=== PATIENT | male | born 1960 | race Caucasian/White ===

== ENCOUNTER → 2017-12-04 07:43 | Outpatient (CLI) | payer BC, SELFPAY ==
[2017-12-04 10:45] LABS: Alanine Aminotransferase 23 U/L (12-78); Albumin Level 3.8 gm/dL (3.4-5.0); Albumin/Globulin Ratio 1.1 (1.1-1.8); Alkaline Phosphatase 126 U/L (46-116); Anion Gap 8.7 mEq/L (5-15); Aspartate Amino Transferase 18 U/L (15-37); Bilirubin,Total 0.5 mg/dL (0.2-1.0); Blood Urea Nitrogen 18 mg/dL (7-18); Calcium 8.9 mg/dL (8.5-10.1); Carbon Dioxide 32 mmol/L (21.0-32.0); Chloride 104 mmol/L (98-107); Chol/HDL Ratio 3.3 (1-3.5); Cholesterol 164 mg/dL (140-200); Estimated Glomerular Filt Rate 100 ml/min (>60); GFR (African American) 121 ML/MIN (>60); Globulin 3.4 gm/dl (1.3-3.2); Glucose 85 mg/dL (74-106); HDL Cholesterol 49 mg/dL (27-67); LDL Cholesterol 99 mg/dL (0-130); Potassium 4.7 mmoL/L (3.5-5.1); Sodium 140 mmol/L (136-145); Total Protein,Serum 7.2 gm/dL (6.4-8.2); Triglycerides 81 mg/dL (30-200); VLDL Cholesterol 16 mg/dL (0-40)
== END ==
PROVIDERS: PCP Family Medicine; Visit Provider Family Medicine
DX: E78.5 Hyperlipidemia, unspecified (principal); I10 Essential (primary) hypertension
CPT/HCPCS: 36415; 80053; 80061

== ENCOUNTER 2018-02-03 09:00 | Outpatient (RCR) | payer BC, SELFPAY | END 2018-02-03 09:05 | disposition home or self-care (01) | LOC: PT 09:00 | PROVIDERS: Visit Provider Orthopaedic Surgery | DX: Z96.641 Presence of right artificial hip joint (principal) | CPT/HCPCS: 97110; 97163 ==

== ENCOUNTER → 2020-06-20 15:37 | Outpatient (CLI) | payer OTHER, SELFPAY ==
--- NOTE | 2020-06-20 15:46 | XR_ITS ---
PROCEDURE: XR SHOULDER LT MIN 2V CLINICAL INDICATION: ACUTE PAIN OF LT SHOULDER COMPARISON: No exams were available for comparison FINDINGS: No fracture or dislocation. No lytic or blastic change. There is normal mineralization. Minimal spurring at the AC joint. No significant subacromial stenosis. Unremarkable glenohumeral joint. IMPRESSION: Minimal degenerative change AC joint Dictated by: Abdon Nieves MD 06/20/2020 17:43 Abdon Nieves MD in [place] 06/20/2020 17:43
== END ==
PROVIDERS: PCP Family Medicine; Visit Provider Family Medicine
DX: M25.512 Pain in left shoulder (principal)
CPT/HCPCS: 73030

== ENCOUNTER 2020-09-29 03:24 | Emergency (ER) | payer BC, SELFPAY ==
[2020-09-29 03:40] VITALS: BP 142/90; PULSE 79; RESP 16; TEMP 36.6; O2SAT 98; BMI 28.1
[2020-09-29 04:39] VITALS: BP 141/73; PULSE 78; RESP 16; O2SAT 98
--- NOTE | 2020-09-29 04:56 | ECG_ITS ---
APPROVED REPORT Exam: Resting ECG HR:58 bpm ECG Measurements Heart Rate 58 AXES CA 176 P 46 QRSd 98 QRS 62 QT 392 T 23 QTc 384 Conclusion Sinus bradycardia Otherwise normal ECG Electronically signed by : Maik Mcknight MD 09/29/2020 22:27:35
[2020-09-29 05:08] LABS: Basophils # 0.1 K/mm3 (0-0.2); Basophils % 0.5 % (0.1-2.0); Eosinophils # 0.3 K/mm3 (0.0-0.4); Eosinophils % 2.5 % (0.1-12.0); Hematocrit 43.8 % (42.0-52.0); Hemoglobin 14.3 g/dL (14.1-18.0); Lymphocytes # 1.6 K/mm3 (0.7-4.5); Lymphocytes % 15.3 % (10-50); Mean Corpuscular HGB Conc 32.6 g/dL (31.8-35.4); Mean Corpuscular Hemoglobin 28.4 pg (27.0-31.2); Mean Corpuscular Volume 87.2 fl (80-94); Mean Platelet Volume 7.2 fl (7.4-10.4); Monocytes # 0.5 K/mm3 (0.1-1.0); Monocytes % 4.8 % (1.7-9.3); Neutrophils # 8.2 K/mm3 (1.8-7.8); Neutrophils % 76.9 % (37.0-80.0); Platelet Count 308 K/mm3 (142-424); Red Blood Count 5.02 M/mm3 (4.60-6.20); Red Cell Distribution Width 14.1 % (11.5-17.5); White Blood Count 10.7 K/mm3 (4.8-10.8)
[2020-09-29 05:14] LABS: Alanine Aminotransferase 23 U/L (12-78); Albumin Level 4.4 g/dl (3.5-5.0); Albumin/Globulin Ratio 1.3 (1.1-1.8); Alkaline Phosphatase 122 U/L (38-126); Anion Gap 11.5 mEq/L (5-15); Aspartate Amino Transferase 29 U/L (17-59); Bilirubin,Total 0.5 mg/dl (0.2-1.3); Blood Urea Nitrogen 17 mg/dl (9-20); Calcium 9.1 mg/dl (8.4-10.2); Carbon Dioxide 29 mmol/L (22.0-30.0); Chloride 103 mmol/L (98-107); Creatinine Clearance Estimated 115 mL/min (50-200); Estimated Glomerular Filt Rate 99 ml/min (>60); GFR (African American) 120 ML/MIN (>60); Globulin 3.5 g/dL (1.3-3.2); Glucose 106 mg/dl (74-100); Potassium 4.5 mmoL/L (3.5-5.1); Sodium 139 mmol/L (136-145); Total Protein,Serum 7.9 g/dl (6.3-8.2); Uric Acid 3.9 mg/dl (3.5-8.5)
[2020-09-29 05:19] LABS: C-Reactive Protein 175.8 mg/L (0-4)
[2020-09-29 05:30] LABS: Troponin I < 0.01 ng/ml (0.00-0.034)
--- NOTE | 2020-09-29 05:51 | HMH.EDGENADL ---
ED Disposition Clinical Impression: Arthralgia Qualifiers: Joint pain location: hand Laterality: bilateral Qualified Code(s): M25.541 - Pain in joints of right hand; M25.542 - Pain in joints of left hand Disposition: Home, Self-Care Condition on Discharge: Good Instructions: DI for Arthralgia Additional Instructions: call pcp this am Referrals: Valdez Fox MD [Primary Care Provider] - - Critical Care Critical Care Time: No Attestation: On 09/29/20, the high probability of a clinically significant, sudden or life threatening deterioration of the following system(s) required my full and direct attention, intervention and personal management. The time I documented below is in addition to time spent performing reported procedures but includes the following listed in this critical care notation. Medical Decision Making - Medical Records Medical records reviewed: Yes: I reviewed the patient's medical records. - Ceferino Inquiry Pt receiving controlled substance: No Vital Signs: 09/29/20 03:40 09/29/20 04:39 Temperature 97.8 F Temperature Source Oral Pulse Rate 78 Pulse Rate [Right Brachial] 79 Respiratory Rate 16 16 Blood Pressure 141/73 H Blood Pressure [Right Arm] 142/90 H Blood Pressure Mean [Right Arm] 107 Blood Pressure Source Automatic Cuff Blood Pressure Source [Right Arm] Automatic Cuff Blood Pressure Position Sitting Blood Pressure Position [Right Arm] Sitting 02 Sat by Pulse Oximetry 98 98 Oxygen Delivery Method Room Air Room Air - Lab Data Lab results reviewed: Yes: I reviewed the patient's lab results. Lab Results 09/29/20 04:50: WBC 10.7, RBC 5.02, Hgb 14.3, Hct 43.8, MCV 87.2, MCH 28.4, MCHC 32.6, RDW 14.1, Plt Count 308, MPV 7.2 L, Neut % (Auto) 76.9, Lymph % (Auto) 15.3, Meigs % (Auto) 4.8, Eos % (Auto) 2.5, Baso % (Auto) 0.5, Neut # (Auto) 8.2 H, Lymph # (Auto) 1.6, Meigs # (Auto) 0.5, Eos # (Auto) 0.3, Baso # (Auto) 0.1 09/29/20 04:50: Sodium 139, Potassium 4.5, Chloride 103, Carbon Dioxide 29, Anion Gap 11.5, BUN 17, Creatinine 0.80, Estimated Creat Clear 115, Estimated GFR 99, Est GFR ( Amer) 120, Glucose 106 H, Calcium 9.1, Total Bilirubin 0.5, AST 29, ALT 23, Alkaline Phosphatase 122, Troponin I < 0.01, C-Reactive Protein 175.8 H, Total Protein 7.9, Albumin 4.4, Globulin 3.5 H, Albumin/Globulin Ratio 1.3 09/29/20 04:50: Uric Acid 3.9 Result diagrams: 09/29/20 04:50 09/29/20 04:50 Orders (Tests/Meds): ED MEDICATIONS Discontinued Medications Generic Name Dose Route Start Last Admin Trade Name Freq PRN Reason Stop Dose Admin Ketorolac Tromethamine 30 mg 09/29/20 04:42 09/29/20 04:46 Ketorolac 30mg/Ml Vial IV 09/29/20 04:43 30 mg ONCE ONE Administration Methylprednisolone Sodium Succinate 125 mg 09/29/20 04:42 09/29/20 04:46 Methylprednisolone Sod Succ 125mg Vial IV 09/29/20 04:43 125 mg ONCE ONE Administration ORDERS Category Date Time Status Complete Blood Count Auto Diff Stat Lab 09/29/20 04:50 Results Erythrocyte Sedimentation Rate Stat Lab 09/29/20 04:50 Results Troponin I Q3H Lab 09/29/20 07:45 Ordered Troponin I Q3H Lab 09/29/20 10:45 Ordered Medical Decision Narrative: has elevated infl markers and bilat symmetrical jt pain - will ask pt to call pcp this am General Adult HPI - General Chief complaint: PAIN Stated complaint: pain in arms and legs Time Seen by Provider: 09/29/20 04:15 Mode of Arrival: Family Vehicle Source of Information: Patient, Medical Record Limitations: No Limitations Description of Symptoms (Recalled from ER Triage Doc. by RN): bilateral shoulders and bilat hand pain for approx 2 weeks. has been seeing dr fox for the pain, and had blood work drawn earlier this date. denies nausea/vomiting. denies dyspnea. no signs/symptoms of erythema, edema - History of Present Illness HPI narrative: has ongoing bilat shoulder and hand arthritis /joint pain - pt has seen pcp an
[2020-09-29 05:59] LABS: Erythrocyte Sedimentation Rate 25 mm/hr (0-20)
[2020-09-29 06:09] VITALS: BP 142/81; PULSE 73; RESP 16; TEMP 36.6; O2SAT 99
== END 2020-09-29 06:11 | disposition home or self-care (01) ==
PROVIDERS: Emergency Provider Emergency Medicine; PCP Family Medicine
DX: M25.541 Pain in joints of right hand (principal); M25.542 Pain in joints of left hand
CPT/HCPCS: 80053; 84484; 84550; 85025; 85651; 86140; 93005; 96375; 99282

== ENCOUNTER 2020-10-12 17:17 | Observation (INO) | payer BC, SELFPAY ==
[2020-10-12 17:18] VITALS: BP 134/82; PULSE 76; RESP 22; TEMP 37.6; O2SAT 93; BMI 28.1
--- NOTE | 2020-10-12 18:26 | ECG_ITS ---
APPROVED REPORT Exam: Resting ECG HR:76 bpm ECG Measurements Heart Rate 76 AXES VA 170 P 19 QRSd 104 QRS 21 QT 356 T 18 QTc 400 Conclusion Normal sinus rhythm Left atrial abnormality Borderline ECG Electronically signed by : Maik Mcknight MD 10/13/2020 17:34:36
--- NOTE | 2020-10-12 18:38 | XR_ITS ---
PROCEDURE INFORMATION: Exam: XR Chest Exam date and time: 10/12/20 06:38 PM Age: 59 years old Clinical indication: Shortness of breath; Patient HX: SOB TECHNIQUE: Imaging protocol: XR of the chest. Views: 1 view. COMPARISON: CR XR SHOULDER LT MIN 2V 06/20/20 03:49 PM FINDINGS: Lungs: Patchy bilateral ground-glass infiltrates, peripheral predominance. Consider COVID-19. Pleural spaces: Unremarkable. No pleural effusion. No pneumothorax. Heart/Mediastinum: Unremarkable. No cardiomegaly. Bones/joints: Unremarkable. IMPRESSION: Patchy bilateral ground-glass infiltrates, peripheral predominance. Consider COVID-19.
[2020-10-12 18:50] LABS: Alanine Aminotransferase 33 U/L (12-78); Alkaline Phosphatase 101 U/L (38-126); Anion Gap 12.9 mEq/L (5-15); Aspartate Amino Transferase 34 U/L (17-59); Bilirubin,Total 0.7 mg/dl (0.2-1.3); Blood Urea Nitrogen 14 mg/dl (9-20); Calcium 8.4 mg/dl (8.4-10.2); Carbon Dioxide 30 mmol/L (22.0-30.0); Chloride 97 mmol/L (98-107); Creatinine Clearance Estimated 131 mL/min (50-200); Estimated Glomerular Filt Rate 115 ml/min (>60); GFR (African American) 140 ML/MIN (>60); Glucose 106 mg/dl (74-100); Potassium 3.9 mmoL/L (3.5-5.1); Sodium 136 mmol/L (136-145)
[2020-10-12 18:51] LABS: Basophils % 0.3 % (0.1-2.0); Eosinophils # 0.2 K/mm3 (0.0-0.4); Eosinophils % 1.9 % (0.1-12.0); Hematocrit 41.9 % (42.0-52.0); Hemoglobin 13.7 g/dL (14.1-18.0); Lymphocytes # 0.9 K/mm3 (0.7-4.5); Lymphocytes % 9.9 % (10-50); Mean Corpuscular HGB Conc 32.7 g/dL (31.8-35.4); Mean Corpuscular Hemoglobin 28.7 pg (27.0-31.2); Mean Corpuscular Volume 87.7 fl (80-94); Mean Platelet Volume 8.2 fl (7.4-10.4); Monocytes # 0.7 K/mm3 (0.1-1.0); Monocytes % 6.8 % (1.7-9.3); Neutrophils # 7.8 K/mm3 (1.8-7.8); Neutrophils % 81.2 % (37.0-80.0); Platelet Count 445 K/mm3 (142-424); Red Blood Count 4.78 M/mm3 (4.60-6.20); Red Cell Distribution Width 13.7 % (11.5-17.5); White Blood Count 9.6 K/mm3 (4.8-10.8)
[2020-10-12 18:56] LABS: D-Dimer 0.26 ug/mL (0.0-0.5)
--- NOTE | 2020-10-12 19:44 | HMH.EDGENADL ---
ED Disposition Clinical Impression: Pneumonia due to COVID-19 virus Disposition: Admitted as Observation Condition on Discharge: Fair Referrals: Valdez Patel MD [Primary Care Provider] - - Critical Care Critical Care Time: No Attestation: On 10/12/20, the high probability of a clinically significant, sudden or life threatening deterioration of the following system(s) required my full and direct attention, intervention and personal management. The time I documented below is in addition to time spent performing reported procedures but includes the following listed in this critical care notation. Medical Decision Making - Ceferino Inquiry Pt receiving controlled substance: No Vital Signs: 10/12/20 17:18 Temperature 99.6 F Temperature Source Oral Pulse Rate [Right] 76 Respiratory Rate 22 Blood Pressure [Right Arm] 134/82 Blood Pressure Mean [Right Arm] 99 02 Sat by Pulse Oximetry 93 L Oxygen Delivery Method Room Air - Lab Data Lab Results 10/12/20 18:30: WBC 9.6, RBC 4.78, Hgb 13.7 L, Hct 41.9 L, MCV 87.7, MCH 28.7, MCHC 32.7, RDW 13.7, Plt Count 445 H, MPV 8.2, Neut % (Auto) 81.2 H, Lymph % (Auto) 9.9 L, Knott % (Auto) 6.8, Eos % (Auto) 1.9, Baso % (Auto) 0.3, Neut # (Auto) 7.8, Lymph # (Auto) 0.9, Knott # (Auto) 0.7, Eos # (Auto) 0.2, Baso # (Auto) 0.0 10/12/20 18:30: D-Dimer 0.26 10/12/20 18:30: Sodium 136, Potassium 3.9, Chloride 97 L, Carbon Dioxide 30, Anion Gap 12.9, BUN 14, Creatinine 0.70, Estimated Creat Clear 131, Estimated GFR 115, Est GFR ( Amer) 140, Glucose 106 H, Calcium 8.4, Total Bilirubin 0.7, AST 34, ALT 33, Alkaline Phosphatase 101, Total Protein 8.0, Albumin 4.0, Globulin 4.0 H, Albumin/Globulin Ratio 1.0 L Result diagrams: 10/12/20 18:30 10/12/20 18:30 - Physician Consults Physician Consulted: Maurice Time: 19:53 Reason -: Admission Comment/Response: Agrees to admit the patient to the hospital. We discussed the patient's clinical information, including history, exam, laboratory and radiology results and ED course. Per hospital procedure, I will write temporary bridge inpatient orders on the patient. Specific orders requested by the admitting physician: COVID-19 protocol Medical Decision Narrative: Day 10 of Covid infection and has now developed bilateral infiltrates, shortness of breath. Pulse ox has been 91 to 95% in the emergency department. I recommended admission for steroids and remdesivir and the patient is agreeable. General Adult HPI - General Chief complaint: Shortness of Breath/Dyspnea Stated complaint: covid positive symptoms worsening Time Seen by Provider: 10/12/20 19:45 Mode of Arrival: Ambulatory Limitations: No Limitations Description of Symptoms (Recalled from ER Triage Doc. by RN): COVID + on 10/02, today at noon woke up from a nap & was short of breath. c/o body aches & nausea. denies fevers. - History of Present Illness HPI narrative: Patient complains of shortness of breath. States that he tested positive for Covid 10 days ago. He took a nap today and woke up and says he could not breathe. Continues to have a cough. No recent fevers. He has body aches and nausea but no vomiting. He has had some diarrhea. No previous treatment for Covid except for zinc. He has not had monoclonal antibodies. He was not vaccinated against COVID-19. - Related Data Home Medications Medication Instructions Recorded Confirmed Celecoxib 200 mg PO DAILY 09/29/20 09/29/20 Pravastatin Sodium [Pravachol 40mg 40 mg PO HS 09/29/20 09/29/20 Tablet] Ramipril 10 mg PO DAILY 09/29/20 09/29/20 Allergies Allergy/AdvReac Type Severity Reaction Status Date / Time No Known Allergies Allergy Verified 12/23/17 17:58 [facility] History - Hepatitis A Screen Drug use history?: No High risk sexual behaviors?: No History of sexually transmitted infection?: No Currently employed?: No Childcare worker?: No Do you have indoor plumbing?: Yes Do you have elect
--- NOTE | 2020-10-12 21:48 | PC.NURSE ---
spoke with and updated re: situation. she was simultaneously upset that the dr hadn't spoken with her but understanding of pt needs being priority. pt gave password [email or web address] and was passed on to registration. report called to MIGUEL Palomares. Pt remains alert, oriented, no complaints other than this jung bed .
[2020-10-12 21:52] VITALS: BP 137/81; PULSE 95; RESP 24; TEMP 37.2; O2SAT 96
[2020-10-12 22:30] VITALS: BP 131/75; PULSE 78; RESP 17; TEMP 37.7; O2SAT 95; BMI 28.1
[2020-10-12 22:51] VITALS: O2SAT 94
--- NOTE | 2020-10-12 22:57 | PC.NURSE ---
pt. arrived via at 2220 to unit
[2020-10-13] VITALS: BP 137/84; PULSE 73; RESP 20; TEMP 37.3
--- NOTE | 2020-10-13 02:57 | PC.NURSE ---
Pt. has c/o soa, increasing with activity. Pt. also c/o intermittent nausea, usually post medication. No vomiting, diarrhea or c/o pain, dizziness. Pt. on RA with o2 sat 93-95%. Intermittent nonproductive cough noted.
[2020-10-13 04:00] VITALS: BP 130/89; PULSE 72; RESP 16; TEMP 36.9; O2SAT 96
[2020-10-13 05:33] VITALS: BMI 28.0
[2020-10-13 07:51] VITALS: BP 136/89; PULSE 68; RESP 19; TEMP 36.6; O2SAT 98
--- NOTE | 2020-10-13 08:07 | HMH.PHAINT ---
HOME MEDICATION LIST VERIFIED USING LIST FROM [facility]
--- NOTE | 2020-10-13 08:43 | HMH.HP ---
*Admission Date: 10/13/20 <Carla Leon 10/13/20 08:45> *Chief complaint: nausea, shortness of breath <Carla Leon 10/13/20 11:31> *History of present illness: Mr. Ospina is a 59yo male who tested positive for Covid 10 days ago. He states he did not have a vaccine as he is on the road a lot and did not have time to get one. His whole family did have the vaccine and none of them are sick. He states he thought he was feeling better until he took a nap today and woke up and could not breathe. He has had a cough along with body aches and nausea but no vomiting. He has also had some diarrhea. He states he has had no previous treatment for Covid except for zinc. His oxygen was in the low 90s on room air but his chest x-ray showed developing bilateral infiltrates. He was therefore admitted and started on steroids and remdesivir. <Carla Leon 10/13/20 11:31> [facility] History I have reviewed the patient's past medical history: Yes <Carla Leon 10/13/20 11:31> Medical History: Reports:: Gastroesophageal Reflux Disease(GERD), Hyperlipidemia, Hypertension Denies:: Diabetes Mellitus Type 1, Diabetes Mellitus Type 2 <Carla Leon 10/13/20 11:31> *Have you ever received a pneumonia vaccine?: No <Carla Leon 10/13/20 08:45> *Have you received a flu vaccine this season?: No <Carla Leon 10/13/20 08:45> Other Medical History: Reports: Arthritis, Cataracts (r eye) <Carla Leon 10/13/20 11:31> Laterality Cases: Bilateral: Total Hip Replacement <Carla Leon 10/13/20 08:45> - *Social History Smoking Status: Former smoker <Carla Leon 10/13/20 08:45> Alcohol Intake: current <Carla Leon 10/13/20 08:45> Alcohol Intake Frequency:: a few times a week <Carla Leon 10/13/20 08:45> *Occupational Status:: employed <Carla Leon 10/13/20 08:45> *Travel in the last 8 weeks: None <Carla Leon 10/13/20 08:45> Family Hx:: Coronary Artery Disease, Heart Attack, Hypertension <[facility] 10/13/20 11:31> Review of Systems - Constitutional Reports chills, Reports fever(s), Reports malaise, Reports weakness <[facility] 10/13/20 11:31> - Eyes Denies blurry vision, Denies double vision <JoselojagrutiCarla - 10/13/20 11:31> - ENT Reports nasal congestion, Reports sore throat <[facility] 10/13/20 11:31> - *Cardiovascular Reports shortness of breath, Denies chest pain <[facility] 10/13/20 11:31> - *Respiratory Reports cough, Reports shortness of breath <[facility] 10/13/20 11:31> - *Gastrointestinal Reports abdominal pain, Reports loose stools, Reports nausea, Denies vomiting <[facility] 10/13/20 11:31> - *Genitourinary Denies difficulty urinating, Denies painful urination <[facility] 10/13/20 11:31> - *Musculoskeletal Reports body aches, Denies joint pain <[facility] 10/13/20 11:31> - *Neurologic Reports headache(s), Reports weakness, Denies dizziness <[facility] 10/13/20 11:31> Meds Home Medications Medication Instructions Recorded Confirmed Type Pravastatin Sodium [Pravachol 40mg 40 mg PO HS 09/29/20 10/12/20 History Tablet] Multivit-Minerals/Folic Acid 200 mcg PO DAILY 10/12/20 10/12/20 History [Multivitamin Gummies] Omeprazole [Omeprazole 20mg Tab] 20 mg PO DAILY 10/12/20 10/12/20 History ramipriL [Ramipril] 2.5 mg PO DAILY 10/13/20 10/13/20 History <Valdez Patel - 10/13/20 13:30> Allergies Allergy/AdvReac Type Severity Reaction Status Date / Time No Known Allergies Allergy Verified 12/23/17 17:58 <Valdez Patel - 10/13/20 13:30> Exam Vital signs and Labs for Last 24 Hours: Temp Pulse Resp BP Pulse Ox 98.4 F 70 18 125/78 95 10/13/20 11:54 10/13/20 11:54 10/13/20 11:54 10/13/20 11:54 10/13/20 11:54 Laboratory Results - last 24 hr 10/12/20 18:30: WBC 9.6, RBC 4.78, Hgb 13.7 L, Hct 41.9 L, MCV 87.7, MCH 28.7, MCHC 32.7, RDW 13.7, Plt Count 445 H, MPV 8.2, Neut % (
[2020-10-13 11:54] VITALS: BP 125/78; PULSE 70; RESP 18; TEMP 36.9; O2SAT 95
--- NOTE | 2020-10-13 13:41 | PC.NURSE ---
This RN has taken over care of this pt at this time
[2020-10-13 16:00] VITALS: BP 119/80; PULSE 58; RESP 18; TEMP 36.7; O2SAT 96
[2020-10-13 20:00] VITALS: BP 119/76; PULSE 64; RESP 18; TEMP 37.2; O2SAT 93
[2020-10-14] VITALS: BP 116/76; PULSE 64; RESP 20; TEMP 36.6; O2SAT 96
--- NOTE | 2020-10-14 03:40 | PC.NURSE ---
Pt has not c/o any discomfort this shift. Has given himself a bath and tolerated well. Pt has remained on RA this shift with O2 sats mid to upper 90s.. Lungs are diminished. Pt has been bradycardic during sleep with HR as low as upper 40s. Pt has remained asymptomatic. No other concerns. Will continue to monitor.
[2020-10-14 04:00] VITALS: BP 130/80; PULSE 55; RESP 20; TEMP 36.6; O2SAT 97
[2020-10-14 05:00] VITALS: BMI 28.8
[2020-10-14 06:53] LABS: Alanine Aminotransferase 37 U/L (12-78); Alanine Aminotransferase 38 U/L (12-78); Albumin Level 3.1 g/dl (3.5-5.0); Albumin/Globulin Ratio 0.9 (1.1-1.8); Alkaline Phosphatase 74 U/L (38-126); Alkaline Phosphatase 75 U/L (38-126); Anion Gap 9.9 mEq/L (5-15); Aspartate Amino Transferase 36 U/L (17-59); Aspartate Amino Transferase 37 U/L (17-59); Bilirubin,Direct 0.2 mg/dl (0.0-0.4); Bilirubin,Total 0.2 mg/dl (0.2-1.3); Bilirubin,Total 0.3 mg/dl (0.2-1.3); Blood Urea Nitrogen 16 mg/dl (9-20); Carbon Dioxide 25 mmol/L (22.0-30.0); Chloride 107 mmol/L (98-107); Creatinine Clearance Estimated 156 mL/min (50-200); Estimated Glomerular Filt Rate 138 ml/min (>60); GFR (African American) 167 ML/MIN (>60); Globulin 3.2 g/dL (1.3-3.2); Glucose 126 mg/dl (74-100); Potassium 3.9 mmoL/L (3.5-5.1); Sodium 138 mmol/L (136-145); Total Protein,Serum 6.2 g/dl (6.3-8.2)
[2020-10-14 08:00] VITALS: BP 119/68; PULSE 56; RESP 14; TEMP 36.8; O2SAT 96
--- NOTE | 2020-10-14 08:45 | HMH.ACPN2 ---
Internal Medicine - PN: Subj *Date: 10/14/20 *Time: 08:45 Interval history: Patient did well overnight, did not need supplemental oxygen, anxious to go home. Exam Vital signs and Labs for Last 24 Hours: Temp Pulse Resp BP Pulse Ox 97.9 F 55 L 20 130/80 97 10/14/20 04:00 10/14/20 04:00 10/14/20 04:00 10/14/20 04:00 10/14/20 04:00 Laboratory Results - last 24 hr 10/14/20 05:19: Sodium 138, Potassium 3.9, Chloride 107, Carbon Dioxide 25, Anion Gap 9.9, BUN 16, Creatinine 0.60 L, Estimated Creat Clear 156, Estimated GFR 138, Est GFR ( Amer) 167, Glucose 126 H, Calcium 8.0 L, Total Bilirubin 0.3, AST 36, ALT 37, Alkaline Phosphatase 75, Total Protein 6.2 L, Albumin 3.0 L D, Globulin 3.2, Albumin/Globulin Ratio 0.9 L 10/14/20 05:19: Total Bilirubin 0.2, Direct Bilirubin 0.2, Conjugated Bilirubin 0.0, Indirect Bilirubin 0.0, Unconjugated Bilirubin 0.0, AST 37, ALT 38, Alkaline Phosphatase 74, Total Protein 6.2 L, Albumin 3.1 L Vital Signs - 24 hr 10/13/20 11:54 10/13/20 16:00 10/13/20 20:00 Temperature 98.4 F 98.1 F 99.0 F Pulse Rate [Right Radial] 58 L 64 Pulse Rate [Right] 70 Respiratory Rate 18 18 18 Blood Pressure [Right Arm] 125/78 119/80 119/76 02 Sat by Pulse Oximetry 95 96 93 L 10/14/20 00:00 10/14/20 04:00 Temperature 97.8 F 97.9 F Pulse Rate [Right Radial] 64 55 L Pulse Rate [Right] Respiratory Rate 20 20 Blood Pressure [Right Arm] 116/76 130/80 02 Sat by Pulse Oximetry 96 97 I & O for Last 24 hours: Intake & Output 10/11/20 10/12/20 10/13/20 10/14/20 23:59 23:59 23:59 23:59 Intake Total 880 / 880 Output Total 1450 / 1850 400 / 400 Balance -570 / -970 -400 / -400 Weight 179 lb 3 oz 179 lb 1 oz 183 lb 6 oz Microbiology Reports for the Last 24 Hours: Microbiology 10/13/20 11:26 Sputum - Expectorated Sputum Gram Stain - Final - Constitutional no acute distress - *Routine HEENT Exam Head: Present: normocephalic Eye: Present: EOMI, PERRL ENT: Present: mucous membranes moist - *Routine Neck Exam Present: supple. Absent: lymphadenopathy - *Routine Respiratory Exam Present: CTA bilaterally - *Routine Cardiovascular Exam Present: RRR - *Routine Abdominal Exam Present: soft, normoactive bowel sounds. Absent: tenderness - *Routine Extremities Exam Absent: cyanosis, clubbing, edema - *Routine Skin Exam Present: warm. Absent: rash - *Routine Neurological Exam Present: alert, oriented X3 Assessment and Plan (1) Pneumonia due to COVID-19 virus Status: Acute Category: Medical Code(s): U07.1 - COVID-19; J12.82 - Pneumonia due to coronavirus disease 2019 (2) Hypertension Status: Chronic Category: Medical Code(s): I10 - Essential (primary) hypertension (3) Hyperlipidemia Status: Chronic Category: Medical Code(s): E78.5 - Hyperlipidemia, unspecified - Assessment and plan all Dx Assessment and Plan for all problems:: OK for discharge home today. Patient does not want to continue Remdesivir as an outpatient. He will stay off work, f/u by telehealth visit in 6 days.
--- NOTE | 2020-10-14 21:30 | HMH.DCSUM ---
General - General Admission date:: 10/12/20 Discharge date: 10/14/20 HPI HPI: Mr. Ospina is a 59yo male who tested positive for Covid 10 days ago. He stated he did not have a vaccine as he is on the road a lot and did not have time to get one. He noted that his whole family did have the vaccine and none of them had been sick. He stated he thought he was feeling better until he took a nap and awakened and could not breathe. He had a cough along with body aches and nausea but no vomiting. He also had some diarrhea. He stated he had no previous treatment for Covid except for zinc. His oxygen was in the low 90s on room air but his chest x-ray showed developing bilateral infiltrates. He was therefore admitted and started on steroids and remdesivir. Hospital Course Hospital Course: Patient was started on Covid protocol. Sats remained above 90% on room air. The following day he remained comfortable. He was doing well with no need for supplemental oxygen. He was anxious to go home. Vital signs were stable. Patient was able to eat well. On 10/14/2020 patient was stable for discharge. He was to return home with limited activity and follow-up with Dr. Patel on 10/19/2020. Meds to include dexamethasone, vitamin C, vitamin D, zinc, and cough medicine. Objective Vital signs: Temp Pulse Resp BP Pulse Ox 98.3 F 56 L 14 119/68 96 10/14/20 08:00 10/14/20 08:00 10/14/20 08:00 10/14/20 08:00 10/14/20 08:00 Narrative: Exam Vital signs and Labs for Last 24 Hours: Temp Pulse Resp BP Pulse Ox 97.9 F 55 L 20 130/80 97 10/14/20 04:00 10/14/20 04:00 10/14/20 04:00 10/14/20 04:00 10/14/20 04:00 Laboratory Results - last 24 hr 10/14/20 05:19: Sodium 138, Potassium 3.9, Chloride 107, Carbon Dioxide 25, Anion Gap 9.9, BUN 16, Creatinine 0.60 L, Estimated Creat Clear 156, Estimated GFR 138, Est GFR ( Amer) 167, Glucose 126 H, Calcium 8.0 L, Total Bilirubin 0.3, AST 36, ALT 37, Alkaline Phosphatase 75, Total Protein 6.2 L, Albumin 3.0 L D, Globulin 3.2, Albumin/Globulin Ratio 0.9 L 10/14/20 05:19: Total Bilirubin 0.2, Direct Bilirubin 0.2, Conjugated Bilirubin 0.0, Indirect Bilirubin 0.0, Unconjugated Bilirubin 0.0, AST 37, ALT 38, Alkaline Phosphatase 74, Total Protein 6.2 L, Albumin 3.1 L Vital Signs - 24 hr 10/13/20 11:54 10/13/20 16:00 10/13/20 20:00 Temperature 98.4 F 98.1 F 99.0 F Pulse Rate [Right Radial] 58 L 64 Pulse Rate [Right] 70 Respiratory Rate 18 18 18 Blood Pressure [Right Arm] 125/78 119/80 119/76 02 Sat by Pulse Oximetry 95 96 93 L 10/14/20 00:00 10/14/20 04:00 Temperature 97.8 F 97.9 F Pulse Rate [Right Radial] 64 55 L Pulse Rate [Right] Respiratory Rate 20 20 Blood Pressure [Right Arm] 116/76 130/80 02 Sat by Pulse Oximetry 96 97 I & O for Last 24 hours: Intake & Output 10/11/20 10/12/20 10/13/20 10/14/20 23:59 23:59 23:59 23:59 Intake Total 880 / 880 Output Total 1450 / 1850 400 / 400 Balance -570 / -970 -400 / -400 Weight 179 lb 3 oz 179 lb 1 oz 183 lb 6 oz Microbiology Reports for the Last 24 Hours: Microbiology 10/13/20 11:26 Sputum - Expectorated Sputum Gram Stain - Final - Constitutional no acute distress - *Routine HEENT Exam Head: Present: normocephalic Eye: Present: EOMI, PERRL ENT: Present: mucous membranes moist - *Routine Neck Exam Present: supple. Absent: lymphadenopathy - *Routine Respiratory Exam Present: CTA bilaterally - *Routine Cardiovascular Exam Present: RRR - *Routine Abdominal Exam Present: soft, normoactive bowel sounds. Absent: tenderness - *Routine Extremities Exam Absent: cyanosis, clubbing, edema - *Routine Skin Exam Present: warm. Absent: rash - *Routine Neurological Exam Present: alert, oriented X3 Results Completed studies during hospitalization [Text1]: 10/12/2020 CXR IMPRESSION: Patchy bilateral ground-glass infiltrates, periphe
== END 2020-10-14 11:45 | disposition home or self-care (01) ==
LOC: ER 19:54 → ICU 21:52
PROVIDERS: Admitting Provider Family Medicine; Emergency Provider Emergency Medicine; PCP Family Medicine; Visit Provider Family Medicine
DX: U07.1 COVID-19 (principal); J12.82 Pneumonia due to coronavirus disease 2019; I10 Essential (primary) hypertension; K21.9 Gastro-esophageal reflux disease without esophagitis
CPT/HCPCS: 71045; 80053; 80076; 85025; 85378; 87070; 87205; 93005; 94760; 94761; 99284; G0378; J2405

== ENCOUNTER 2020-12-04 14:51 | Emergency (ER) | payer BC, SELFPAY ==
[2020-12-04 15:00] VITALS: BP 138/89; PULSE 81; RESP 19; TEMP 37.2; O2SAT 98; BMI 28.1
--- NOTE | 2020-12-04 16:18 | HMH.EDUTC ---
[facility] [place] Clinical Impression: Arthralgia Qualifiers: Joint pain location: unspecified Qualified Code(s): M25.50 - Pain in unspecified joint Disposition: Home, Self-Care Condition on Discharge: Good Instructions: DI for Chronic Pain -- Adult, DI for Arthritis Additional Instructions: Make sure to follow up with as scheduled with Doctor later this week Return if needed Straight to ER if any life threatening symptoms Over the counter motrin and/or Tylenol for pain FOllow up with Family Doctor if needed Referrals: Eliceo Kelly MD [Primary Care Provider] - As needed Time of Disposition: 16:28 Medical Decision Making - Ceferino Inquiry Pt receiving controlled substance: No Ceferino was queried for this patient: No Vital Signs: 12/04/20 15:00 12/04/20 16:32 Temperature 98.9 F 98.9 F Temperature Source Oral Pulse Rate 81 Pulse Rate [Right Brachial] 81 Respiratory Rate 19 19 Blood Pressure 138/89 Blood Pressure [Right Arm] 138/89 Blood Pressure Mean [Right Arm] 105 Blood Pressure Source [Right Arm] Automatic Cuff Blood Pressure Position [Right Arm] Sitting 02 Sat by Pulse Oximetry 98 Oxygen Delivery Method Room Air Orders (Tests/Meds): ED MEDICATIONS Discontinued Medications Generic Name Dose Route Start Last Admin Trade Name Freq PRN Reason Stop Dose Admin Ketorolac Tromethamine 30 mg 12/04/20 16:24 12/04/20 16:30 Ketorolac 60mg/2ml Vial IM 12/04/20 16:25 30 mg ONCE ONE Administration Medical Decision Narrative: Patient states that he has taken Toradol in the past without complications or reactions [facility] H[place] - General Stated complaint: arthritis, swollen joints Time Seen by Provider: 12/04/20 16:18 Mode of Arrival: Ambulatory Source of Information: Patient Limitations: No Limitations Description of Symptoms (Recalled from Triage Doc. by RN): PATIENT C/O PAIN IN ANKLE AND WRIST. HX OF RHEUMATOID ARTHRITIS, CANNOT GET RELIEF FROM PAIN HEENT Symptoms (Recalled from RN notes): No Resp Symptoms (Recalled from RN notes): No Skin Symptoms (Recalled from RN notes): No MS Symptoms (Recalled from RN notes): Yes Functional Status (Recalled from RN notes): WNL - History of Present Illness Provider Complaint: Patient states that he has arthritis really bad States that he has been on prednisone to help it and suppose to see Doctor on for it States that he was here in Sep and got a shot for it and it helped with the pain alot and wanted to see if he could get another shot of Toradol to help until he sees the Dr on - Related Data Home Medications Medication Instructions Recorded Confirmed Pravastatin Sodium [Pravachol 40mg 40 mg PO HS 09/29/20 12/04/20 Tablet] Omeprazole [Omeprazole 20mg Tab] 20 mg PO DAILY 10/12/20 12/04/20 ramipriL [Ramipril] 2.5 mg PO DAILY 10/13/20 12/04/20 predniSONE [Deltasone 10mg 10 mg PO DAILY 12/04/20 12/04/20 tablet] Allergies Allergy/AdvReac Type Severity Reaction Status Date / Time No Known Allergies Allergy Verified 12/23/17 17:58 - Worker's Comp Is this a Worker's Comp case?: No [facility] History - Hepatitis A Screen Drug use history?: No High risk sexual behaviors?: No History of sexually transmitted infection?: No Currently employed?: No Childcare worker?: No Do you have indoor plumbing?: Yes Do you have electricity?: Yes Attestation statement:: This patient has been screened for Hepatitis A risk factors. I have reviewed the patient's past medical history: Yes Medical History: Reports:: Gastroesophageal Reflux Disease(GERD), Hyperlipidemia, Hypertension Denies:: Diabetes Mellitus Type 1, Diabetes Mellitus Type 2 Other Medical History: Reports: Arthritis, Cataracts (r eye) Laterality Cases: Bilateral: Total Hip Replacement - Social History Smoking Status: Former smoker Alcohol Intake: never Alcohol Intake Frequency:: a few times a week Occupational Status: other Family Hx::
[2020-12-04 16:32] VITALS: BP 138/89; PULSE 81; RESP 19; TEMP 37.2; O2SAT 98
== END 2020-12-04 16:42 | disposition home or self-care (01) ==
PROVIDERS: Emergency Provider Nurse Practitioner; PCP Family Medicine
DX: M25.532 Pain in left wrist (principal); M25.531 Pain in right wrist; M25.572 Pain in left ankle and joints of left foot; M25.571 Pain in right ankle and joints of right foot; I10 Essential (primary) hypertension; E78.5 Hyperlipidemia, unspecified; K21.9 Gastro-esophageal reflux disease without esophagitis
CPT/HCPCS: 96372; 99202; G0463

== ENCOUNTER 2022-01-17 19:30 | Emergency (ER) | payer OTHER, SELFPAY ==
[2022-01-17 19:30] VITALS: BP 145/72; PULSE 64; RESP 18; TEMP 36.6; O2SAT 96; BMI 28.1
--- NOTE | 2022-01-17 20:34 | XR_ITS ---
PROCEDURE INFORMATION: Exam: XR Left Wrist Exam date and time: 01/17/2022 8:31 PM Age: 61 years old Clinical indication: Pain; Patient HX: PT states he fell on [place], denies any surgery to left wrist; Additional info: Fall TECHNIQUE: Imaging protocol: Radiologic exam of the Left wrist. Views: 3 or more views. COMPARISON: No relevant prior studies available. FINDINGS: Bones/joints: No visible fracture or dislocation. Soft tissues: Normal. Other findings: There is a radiopaque structure projected over the radial aspect of the carpal region. IMPRESSION: 1. There is a radiopaque structure projected over the radial aspect of the carpal region. 2. No visible fracture or dislocation.
--- NOTE | 2022-01-17 22:49 | HMH.EDUPEXT ---
Discharge Plan Disposition Patient Disposition: Home, Self-Care Chief Complaint: Extremity Injury, Upper Prescriptions Prescriptions: No Action pravastatin 40 MG tablet 40 mg PO HS omeprazole 20 MG tablet,delayed release (DR/EC) 20 mg PO DAILY ramipril 2.5 MG capsule 2.5 mg PO DAILY prednisone 10 MG tablet 10 mg PO DAILY Referrals Follow up/Referrals: Eliceo Kelly MD [Primary Care Provider] - See instructions Ese Hensley [Referring] - See instructions Clinical Impressions Clinical Impression: Injury of wrist, left Instructions Patient Instructions: DI for Wrist Strain Discharge ED Provider: Shan Fabian Upper Extremity HPI General Chief Complaint: Extremity Injury, Upper Stated Complaint: WC 01/17@1700@ L eft wrist Time Seen by Provider: 01/17/22 22:49 Mode of Arrival: Ambulatory Source of Information: Patient Limitations: No Limitations Description of Symptoms (Recalled from ER Triage Doc. by RN): pt states he fell at work on lt wrist around 5. pt c/o lt wrist pain History of Present Illness HPI narrative: fell and has lt wrist injury with tingling middle injury complaint: injury to: left and wrist Onset (ago): hour(s) Other Extremity Injury: Left: wrist Other injuries: none Handedness: right Place: work Severity: moderate Exacerbating factors: movement of extremity Context: injury Associated symptoms: denies other symptoms Related Data Home Medications Medication Instructions Recorded Confirmed pravastatin 40 mg tablet 40 mg PO HS Cholesterol 09/29/20 12/04/20 omeprazole 20 mg tablet,delayed 20 mg PO DAILY GERD 10/12/20 12/04/20 release ramipril 2.5 mg capsule 2.5 mg PO DAILY Hypertension 10/13/20 12/04/20 prednisone 10 mg tablet 10 mg PO DAILY Arthritis 12/04/20 12/04/20 Allergies Allergy/AdvReac Type Severity Reaction Status Date / Time No Known Allergies Allergy Verified 12/23/17 17:58 [facility] Disclaimer: The information contained in this section may have been updated after the patient was seen, as this information can be updated by other users. Social History Smoking Status: Former smoker alcohol intake: never current occupational status: other Travel in the last 8 weeks: None ROS Obtained: Yes All systems reviewed & no additional complaints except as documented Physical Exam General General appearance: alert Head Head exam: normocephalic Eye Eye exam: Present PERRL and EOMI ENT ENT exam: Present mucous membranes moist Neck Neck exam: Present trachea midline Respiratory Respiratory exam: Absent respiratory distress Cardiovascular Cardiovascular exam: Present regular rate Abdominal Exam Abdominal exam: Present soft Expanded Upper Extremity Exam Left: Forearm/Wrist exam: Present tenderness, swelling and tenderness over anatomical snuff box; Absent full ROM, deformity or erythema Neuromotor exam: Normal wrist extension Vascular exam: Normal capillary refill Neurological Exam Neurological exam: Present alert, oriented X3 and CN II-XII intact Psychiatric Psychiatric exam: Present normal affect Skin Skin exam: Absent rash Medical Decision Making Medical Records Medical records reviewed: Yes I reviewed the patient's medical records. Ceferino Inquiry Pt receiving controlled substance: No Vital Signs: 01/17/22 19:30 Temperature 97.8 F Temperature Source Oral Pulse Rate [Right] 64 Respiratory Rate 18 Blood Pressure [Right Arm] 145/72 H Blood Pressure Mean [Right Arm] 96 02 Sat by Pulse Oximetry 96 Lab Data Lab results reviewed: Yes I reviewed the patient's lab results. Orders (Tests/Meds): ED MEDICATIONS Discontinued Medications Generic Name Dose Route Start Last Admin Trade Name Lukeq PRN Reason Stop Dose Admin Acetaminophen 1,000 mg 01/17/22 20:34 01/17/22 20:00 Acetaminophen 500mg Tab PO 01/17/22 20:35 1,000 mg ONCE ONE Administration Ibu
--- NOTE | 2022-01-17 22:52 | CT_ITS ---
PROCEDURE INFORMATION: Exam: CT Left Upper Extremity Without Contrast, Wrist Exam date and time: 01/17/2022 10:58 PM Age: 61 years old Clinical indication: Injury or trauma and abnormal findings; Patient HX: Fall on blacktop TECHNIQUE: Imaging protocol: Computed tomography of the Left upper extremity without contrast. Exam focused on the wrist. Radiation optimization: All CT scans at this facility use at least one of these dose optimization techniques: automated exposure control; mA and/or kV adjustment per patient size (includes targeted exams where dose is matched to clinical indication); or iterative reconstruction. COMPARISON: CR XR WRIST LT MIN 3V 01/17/2022 8:31 PM FINDINGS: 0.4 x 0.3 x 0.6 cm metallic density structures subcutaneously slightly distal to radius on the dorsal surface. Evaluation for acute fractures is somewhat limited secondary to motion artifact without definite evidence of acute fracture. IMPRESSION: 1. 0.4 x 0.3 x 0.6 cm metallic density structures subcutaneously slightly distal to radius on the dorsal surface. This is consistent with foreign body. 2. Evaluation for acute fractures is somewhat limited secondary to motion artifact without definite evidence of acute fracture.
[2022-01-18 00:11] VITALS: BP 139/79; PULSE 61; RESP 16; TEMP 36.6; O2SAT 97
== END 2022-01-18 00:14 | disposition home or self-care (01) ==
PROVIDERS: Emergency Provider Emergency Medicine; PCP Family Medicine
DX: S69.92XA Unspecified injury of left wrist, hand and finger(s), initial encounter (principal); W19.XXXA Unspecified fall, initial encounter; Y99.0 Civilian activity done for income or pay
CPT/HCPCS: 73110; 73200; 96372; 99284